=== PATIENT | female | born 1960 | race African-American/Black ===

== ENCOUNTER 2023-02-17 10:07 | Emergency (ER) | payer MEDICAID ==
[~2023-02-17] VITALS: Ht 165.1 cm; Wt 72.0 kg
[2023-02-17 10:12] VITALS: BP 105/84; PULSE 92; RESP 20; TEMP 98.4; O2SAT 97
[2023-02-17] MEDS ORDERED: TOPUD MT (12:03)
== END 2023-02-17 16:05 | disposition home or self-care (01) ==
LOC: ER 10:07
DX: M25.532 Pain in left wrist (principal); W19.XXXA Unspecified fall, initial encounter; Y93.89 Activity, other specified; Y92.89 Other specified places as the place of occurrence of the external cause; Y99.8 Other external cause status
CPT/HCPCS: 29125; 73110; 99283; A4565